=== PATIENT | female | born 1950 | race African-American/Black ===

== ENCOUNTER 2019-02-03 14:51 | Emergency (ER) | payer MEDICARE, MEDICAID ==
[~2019-02-03] VITALS: Ht 162.6 cm; Wt 77.0 kg
[~2019-02-03 14:51] MED LIST: AMITRIPTYLINE PO; HYDROCHLOROTHIAZIDE; SIMVASTATIN
[2019-02-03 16:16] LABS: BASOPHILS % 1.1 % (0.0-2.0); HEMATOCRIT. 47.1 % (36.0-48.0); HEMOGLOBIN. 16.3 g/dL (12.0-16.0); LYMPHOCYTES % 46.9 % (20.0-50.0); MEAN CORPUSCULAR VOLUME 98.2 fL (81.0-99.0); MEAN PLATELET VOLUME 8.1 fl (7.4-10.4); MONOCYTES % 9.5 % (2.0-8.0); NEUTROPHILS % 41.5 % (40.0-76.0); PLATELET 358 x1000/uL (130-400); RED BLOOD CELL COUNT 4.79 mill/uL (4.2-5.4); RED CELL DISTRIBUTION WIDTH 16.1 % (11.6-14.6)
[2019-02-03 16:18] LABS: CHLORIDE 106 mEq/L (98-107)
[2019-02-03] MEDS ORDERED: POTASSIUM CHLORIDE 20MEQ TABLET SR PO ONE (18:45)
[2019-02-03 19:49] VITALS: BP 127/70
== END 2019-02-03 19:52 | disposition home or self-care (01) ==
LOC: ER 14:51
DX: H61.21 Impacted cerumen, right ear (principal); E87.6 Hypokalemia; I10 Essential (primary) hypertension; F17.210 Nicotine dependence, cigarettes, uncomplicated; Z71.6 Tobacco abuse counseling; Z90.710 Acquired absence of both cervix and uterus; Z88.0 Allergy status to penicillin
CPT/HCPCS: 36415; 84443; 84484; 93005; 99284; 99406

== ENCOUNTER 2021-10-12 21:27 | Emergency (ER) | payer MEDICARE, OTHER ==
[~2021-10-12] VITALS: Ht 162.6 cm; Wt 72.0 kg
[2021-10-12 21:38] VITALS: BP 168/90
[2021-10-12] MEDS ORDERED: TOPUD PO (21:50)
[2021-10-12] MEDS ORDERED: POLY17PO3 PO (21:50)
[2021-10-12] MEDS ORDERED: LACTULOSE 20G/30ML UDC PO ONE (22:00)
[2021-10-12] MEDS ORDERED: ACETAMINOPHEN 325MG TABLET PO ONE (22:00)
== END 2021-10-12 23:25 | disposition home or self-care (01) ==
LOC: ER 21:43
DX: K59.00 Constipation, unspecified (principal); M54.50 Low back pain, unspecified; Z90.710 Acquired absence of both cervix and uterus; Z88.0 Allergy status to penicillin
CPT/HCPCS: 99283

== ENCOUNTER 2022-07-04 11:13 | Emergency (ER) | payer MEDICARE, OTHER ==
[~2022-07-04] VITALS: Ht 162.6 cm; Wt 73.0 kg
[~2022-07-04 11:13] MED LIST changes: +POLY17PO3 PO; +TOPUD PO
[2022-07-04 11:27] VITALS: BP 141/72
[2022-07-04] MEDS ORDERED: LEVO-65 MT (14:25)
== END 2022-07-04 14:48 | disposition home or self-care (01) ==
LOC: ER 11:13
DX: L97.519 Non-pressure chronic ulcer of other part of right foot with unspecified severity (principal); I10 Essential (primary) hypertension; Z88.0 Allergy status to penicillin
CPT/HCPCS: 99283

== ENCOUNTER 2024-10-07 11:24 | Emergency (ER) | payer BC, MEDICAID ==
[~2024-10-07] VITALS: Ht 162.6 cm; Wt 75.2 kg
[~2024-10-07 11:24] MED LIST changes: +LEVO-65 MT
[2024-10-07 11:26] VITALS: O2SAT 94
[2024-10-07] MEDS ORDERED: CLINDAMYCIN 600 MG in DEXTROSE 5% WATER 50 ML IV ONE (12:00)
[2024-10-07 12:35] LABS: BASOPHILS % 0.5 % (0.0-2.0); HEMATOCRIT. 41.7 % (36.0-48.0); HEMOGLOBIN. 14.1 g/dL (12.0-16.0); MEAN CORPUSCULAR HEMOGLOBIN 33.8 pg (28.0-32.0); MEAN CORPUSCULAR HGB CONC 33.8 g/dL (31.0-37.0); MONOCYTES % 9.4 % (2.0-8.0); NEUTROPHILS % 58.1 % (40.0-76.0); RED BLOOD CELL COUNT 4.17 mill/uL (4.2-5.4); RED CELL DISTRIBUTION WIDTH 18.3 % (11.6-14.6)
[2024-10-07] MEDS: CLINDAMYCIN 600MG PREMIX 50 ML IV SCH (12:35)
[2024-10-07 12:40] LABS: CHLORIDE 106 mEq/L (98-107); DIFFERENTIAL COMMENT 1; POTASSIUM 4.2 mEq/L (3.5-5.1); SODIUM 139 mEq/L (136-145)
[2024-10-07 12:41] LABS: CALCIUM 9.4 mg/dL (8.7-10.4); CARBON DIOXIDE 28 mEq/L (21-32)
[2024-10-07 12:46] LABS: CREATININE 0.8 mg/dL (0.6-1.0); GLUCOSE 99 mg/dL (70-105); UREA NITROGEN BLOOD 9 mg/dL (9-23)
[2024-10-07] MEDS: IOHEXOL-300 100 ML BOTTLE ONE (14:35)
[2024-10-07] MEDS ORDERED: LEVO750T68 MT (15:03)
[2024-10-07] MEDS ORDERED: CLIN-116 MT (15:03)
[2024-10-07 15:36] VITALS: BP 170/74; PULSE 82; RESP 18; TEMP 36.9; O2SAT 97
== END 2024-10-07 15:36 | disposition home or self-care (01) ==
LOC: ER 11:24
DX: K04.7 Periapical abscess without sinus (principal); I10 Essential (primary) hypertension; Z88.0 Allergy status to penicillin; Z79.899 Other long term (current) drug therapy; Z90.710 Acquired absence of both cervix and uterus
CPT/HCPCS: 99285; 96365; 70487; 80048; 83605; 85025; 87040; 36415; Q9967; J3490; J7060